=== PATIENT | female | born 1990 | race Caucasian/White ===

== ENCOUNTER 2019-10-22 16:11 | Emergency (ER) | payer MEDICAID ==
[2019-10-22 17:13] LABS: ACETAMINOPHEN < 2 ug/mL (<2)
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
[2019-10-22] MEDS ORDERED: Ondansetron 4 MG Tab.DIS PO ONE (18:03)
[2019-10-22] MEDS ORDERED: Acetaminophen 500 MG Tab PO ONE (18:31)
[2019-10-22] MEDS ORDERED: LORazepam 1 MG Tab PO ONE (18:57)
== END 2019-10-22 19:17 ==
LOC: FB.ED 16:11
DX: F23 Brief psychotic disorder (principal); R45.851 Suicidal ideations; F17.210 Nicotine dependence, cigarettes, uncomplicated; Z88.6 Allergy status to analgesic agent
CPT/HCPCS: 36415; 80048; 80053; 80305-QW; 81025; 84443; 85025; 99285; A9270-GY; G0480

== ENCOUNTER 2020-08-14 03:00 | Emergency (ER) | payer MEDICAID ==
[2020-08-14] MEDS ORDERED: Acetaminophen 500 MG Tab PO ONE (03:27)
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
== END 2020-08-14 05:30 | disposition home or self-care (01) ==
LOC: FB.ED 03:00
DX: S00.03XA Contusion of scalp, initial encounter (principal); Z88.6 Allergy status to analgesic agent; V86.96XA Unspecified occupant of dirt bike or motor/cross bike injured in nontraffic accident, initial encounter; Y92.413 State road as the place of occurrence of the external cause
CPT/HCPCS: 70450; 72125; 81001; 81025; 99285; A9270

== ENCOUNTER 2020-12-18 02:23 | Emergency (ER) | payer MEDICAID ==
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
[2020-12-18] MEDS ORDERED: LORazepam 1 MG Tab PO ONE (03:44)
[2020-12-18] MEDS ORDERED: OLANZapine 5 MG Tab PO ONE ×2 (03:44→05:37)
[2020-12-18 03:54] LABS: ACETAMINOPHEN < 2 ug/mL (<2)
[2020-12-18] MEDS ORDERED: LORazepam 2 MG/ML SDV IM ONE (05:36)
== END 2020-12-18 13:40 ==
LOC: FB.ED 02:23
DX: F25.9 Schizoaffective disorder, unspecified (principal); Z88.6 Allergy status to analgesic agent; Z20.822 Contact with and (suspected) exposure to COVID-19
CPT/HCPCS: 36415; 80053; 80143; 80179; 80305; 80307; 81025; 83735; 84443; 85025; 87635; 96372; 99285; A9270; J2060; U0002

== ENCOUNTER 2021-05-30 21:28 | Emergency (ER) | payer MEDICAID ==
[2021-05-30] MEDS ORDERED: Acetaminophen 325 MG Tab PO ONE (22:19)
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
[2021-05-30] MEDS ORDERED: diphenhydrAMINE 50 MG Cap PO ONE (22:42)
== END 2021-05-30 22:48 | disposition home or self-care (01) ==
LOC: FB.ED 21:28
DX: M79.10 Myalgia, unspecified site (principal); Z72.0 Tobacco use; Z88.6 Allergy status to analgesic agent
CPT/HCPCS: 99284; A9270-GY

== ENCOUNTER 2021-07-02 14:56 | Emergency (ER) | payer MEDICAID ==
[2021-07-02] MEDS ORDERED: hydrOXYzine HCl 25 MG Tab PO ONE (15:28)
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
== END 2021-07-02 16:20 | disposition home or self-care (01) ==
LOC: FB.ED 14:56
DX: F43.0 Acute stress reaction (principal); F20.9 Schizophrenia, unspecified; Z87.820 Personal history of traumatic brain injury; Z88.6 Allergy status to analgesic agent; Z79.899 Other long term (current) drug therapy
CPT/HCPCS: 99283; A9270